=== PATIENT | female | born 1985 | race Hispanic/Latino ===

== ENCOUNTER 2021-06-09 13:10 | Outpatient (CLI) | payer OTHER, SELFPAY ==
[2021-06-09 14:15] VITALS: BP 122/74; PULSE 84
[2021-06-09 14:24] LABS: Basophils Percent Auto 0.3 % (0.2-1.2); Eosinophils Absolute Auto 0.2 K/mm3 (0-0.3); Eosinophils Percent Auto 2.9 % (0-4.4); Hemoglobin 11.5 g/dL (12.0-15.0); Immature Granulocyte Absolute 0.05 K/mm3 (0.00-0.031); Immature Granulocyte Percent A 0.7 % (0-0.5); Lymphocytes Absolute Auto 1.57 K/mm3 (0.9-3.2); Lymphocytes Percent Auto 22.4 % (18.3-44.2); Mean Corpuscular HGB Conc 33.8 g/dl (32-36); Mean Corpuscular Hemoglobin 33.2 pg (26-34); Mean Corpuscular Volume 98.3 fl (80-100); Mean Platelet Volume 10.2 fl (7.4-10.4); Monocytes Absolute Auto 0.3 K/mm3 (0.1-0.6); Monocytes Percent Auto 4.3 % (2.6-8.5); Neutrophils Absolute Auto 4.9 K/mm3 (1.3-6.7); Neutrophils Percent Auto 69.4 % (45.5-73.1); Nucleated Red Blood Cells Absolute Auto 0.1 K/mm3 (0.0-0.012); Nucleated Red Blood Cells Perc 0.7 % (0.0-0.2); Platelet Count Result 251 k/mm3 (150-375); Red Blood Count 3.46 M/mm3 (4.2-5.4); Red Cell Distribution Width 13.9 % (11.5-14.5)
[2021-06-09 14:30] VITALS: BP 121/80; PULSE 78
[2021-06-09 14:34] LABS: Alanine Aminotransferase 18 U/L (4-35); Albumin Level 3.2 g/dL (3.5-5.1); Alkaline Phosphatase 255 U/L (38-126); Anion Gap 6 mmol/L (8-16); Aspartate Amino Transferase 41 U/L (14-36); Bilirubin,Total 0.2 mg/dL (0.2-1.3); Blood Urea Nitrogen 11 mg/dL (7-17); Calcium 8.7 mg/dL (8.4-10.2); Carbon Dioxide 18 mmol/L (22-30); Chloride 110 mmol/L (98-107); Estimated Glomerular Filt Rate > 60; Glucose 118 mg/dL (65-110); Sodium 134 mmol/L (137-145); Uric Acid 4.9 mg/dL (2.5-7.5)
[2021-06-09 14:36] LABS: Add Urine Microscopic? YES; Appearance Urine Cloudy (Clear); Bacteria Urine Trace /hpf; Bilirubin Urine Negative (Negative); Blood Urine Negative (Negative); Color Urine Yellow (Yellow); Glucose Urine UA Negative (Negative); Ketones Urine Negative (Negative); Leukocyte Esterase Ur Negative LEU/UL (NEGATIVE); Mucus Urine Rare /lpf; Nitrate Urine Negative (Negative); Protein Urine 2+ mg/dL (Negative); RBC Urine 0-2 /hpf (0-2); Specific Grav Ur 1.019 (1.001-1.035); Squamous Epithelial Cell Urine Many /hpf (Few); Urobilinogen Urine Negative mg/dL (<2.0); WBC Urine 0-3 /hpf (0-3)
[2021-06-09 14:45] VITALS: BP 124/83; PULSE 78
[2021-06-09 15:00] VITALS: BP 121/79; PULSE 82
[2021-06-09 15:53] LABS: Creatinine Urine 60.8 mg/dL; Total Protein Urine Random 75 mg/dL; Ur Ttl Prot Creatinine Ratio 1.23 mg/mg (0-0.20)
[2021-06-09 15:57] VITALS: BP 122/74
[2021-06-09 16:01] VITALS: BP 121/80
== END 2021-06-09 14:30 | disposition home or self-care (01) ==
LOC: ANHOBOP 13:29 → ANHOBPP 13:37
PROVIDERS: Visit Provider Obstetrics & Gynecology
DX: O13.9 Gestational [pregnancy-induced] hypertension without significant proteinuria, unspecified trimester (principal); Z3A.00 Weeks of gestation of pregnancy not specified
CPT/HCPCS: 36415; 59025; 80053; 81001; 82570; 84156; 84550; 85025; 87086; 99199

== ENCOUNTER 2021-06-13 10:23 | Inpatient (IN) | payer OTHER, SELFPAY ==
[2021-06-13] VITALS (162 sets, daily range): BP systolic 89–150; BP diastolic 50–95; PULSE 60–105; RESP 18; TEMP 36.2–36.9; O2SAT 86–100; BMI 44.1
[2021-06-13 11:36] LABS: Basophils Percent Auto 0.4 % (0.2-1.2); Eosinophils Absolute Auto 0.3 K/mm3 (0-0.3); Eosinophils Percent Auto 3.2 % (0-4.4); Hematocrit 35.8 % (37.0-47.0); Hemoglobin 11.9 g/dL (12.0-15.0); Immature Granulocyte Absolute 0.05 K/mm3 (0.00-0.031); Immature Granulocyte Percent A 0.6 % (0-0.5); Lymphocytes Absolute Auto 1.86 K/mm3 (0.9-3.2); Lymphocytes Percent Auto 24.1 % (18.3-44.2); Mean Corpuscular HGB Conc 33.2 g/dl (32-36); Mean Corpuscular Hemoglobin 32.5 pg (26-34); Mean Corpuscular Volume 97.8 fl (80-100); Mean Platelet Volume 10.2 fl (7.4-10.4); Monocytes Absolute Auto 0.4 K/mm3 (0.1-0.6); Monocytes Percent Auto 4.7 % (2.6-8.5); Neutrophils Absolute Auto 5.2 K/mm3 (1.3-6.7); Nucleated Red Blood Cells Perc 0.4 % (0.0-0.2); Platelet Count Result 254 k/mm3 (150-375); Red Blood Count 3.66 M/mm3 (4.2-5.4); Red Cell Distribution Width 14.2 % (11.5-14.5); White Blood Count 7.7 K/mm3 (4.5-10.0)
[2021-06-13] MEDS: OXYTOCIN 30 UNITS/NS 500 ML 30 UNITS/500 ML BAG IV CONT (11:52)
[2021-06-13 11:57] LABS: Alanine Aminotransferase 19 U/L (4-35); Albumin Level 3.4 g/dL (3.5-5.1); Alkaline Phosphatase 284 U/L (38-126); Anion Gap 8 mmol/L (8-16); Aspartate Amino Transferase 36 U/L (14-36); Bilirubin,Total 0.3 mg/dL (0.2-1.3); Blood Urea Nitrogen 10 mg/dL (7-17); Calcium 8.9 mg/dL (8.4-10.2); Carbon Dioxide 18 mmol/L (22-30); Chloride 109 mmol/L (98-107); Estimated Glomerular Filt Rate > 60; Glucose 96 mg/dL (65-110); Potassium 4.2 mmol/L (3.4-5.0); Sodium 135 mmol/L (137-145)
[2021-06-13] MEDS: LACTATED RINGERS 1,000 ML 125 ML IV CONT ×3 (11:57→17:08)
--- NOTE | 2021-06-13 12:09 | LDADM ---
This patient, Mei Chambers, was admitted to Labor/Delivery/Recovery 106 on 06/13/21 at 10:23. Plans for labor, pain management and were discussed with patient. Patient/family oriented to hospital policies and general routines including ID bracelet, bed and alarms, visiting hours, pain management, procedures, bathroom and other care routines, personal items, smoking policy, room service/diet and guest tray routines, security routines, and visiting hours. Patient/Family are encouraged to report perceived risks to care and to ask questions if they do not understand what they are told or what they should do. See OBIX for further documentation.
--- NOTE | 2021-06-13 15:28 | WPDANESEPPF ---
Anes - Initial Pre Proc Eval Procedure: labor epidural Date/Time: 06/13/21 15:28 Surgeon: Brigitte Jacob MD Pre Op Diagnosis: labor pain Pre Op Diagnosis: Induction of Labor Patient Data Age: 35 Gender: F Height: 1.4 m Weight: 86.3 kg Last Vital Signs Temp 36.9 C 06/13/21 13:30 Pulse 71 06/13/21 15:26 BP 125/74 06/13/21 15:26 Pulse Ox 97 06/13/21 15:24 Allergies Allergy/AdvReac Type Severity Reaction Status Date / Time No Known Allergies Allergy Verified 06/13/21 10:49 Home Medications Medication Instructions Recorded Confirmed Type No Home Medications 06/13/21 06/13/21 History Laboratory Tests 06/13/21 06/13/21 06/13/21 11:14 11:14 11:14 WBC 7.7 K/mm3 K/mm3 (4.5-10.0) RBC 3.66 M/mm3 L M/mm3 (4.2-5.4) Hgb 11.9 g/dL L g/dL (12.0-15.0) Hct 35.8 % L % (37.0-47.0) MCV 97.8 fl fl (80-100) MCH 32.5 pg pg (26-34) MCHC 33.2 g/dl g/dl (32-36) RDW 14.2 % % (11.5-14.5) Plt Count 254 k/mm3 k/mm3 (150-375) MPV 10.2 fl fl (7.4-10.4) Immature Gran % (Auto) 0.6 % H % (0-0.5) Neut % (Auto) 67.0 % % (45.5-73.1) Lymph % (Auto) 24.1 % % (18.3-44.2) [place] % (Auto) 4.7 % % (2.6-8.5) Eos % (Auto) 3.2 % % (0-4.4) Baso % (Auto) 0.4 % % (0.2-1.2) Lymph # (Auto) 1.86 K/mm3 K/mm3 (0.9-3.2) [place] # (Auto) 0.4 K/mm3 K/mm3 (0.1-0.6) Eos # (Auto) 0.3 K/mm3 K/mm3 (0-0.3) Baso # (Auto) 0.0 K/mm3 K/mm3 (0.0-0.1) Abs Immat Gran (auto) 0.05 K/mm3 H K/mm3 (0.00-0.031) Absolute Neuts (auto) 5.2 K/mm3 K/mm3 (1.3-6.7) Absolute Nucleated RBC 0.0 K/mm3 K/mm3 (0.0-0.012) Nucleated RBC % 0.4 % H % (0.0-0.2) Sodium Potassium Chloride Carbon Dioxide Anion Gap BUN Creatinine Estim Creat Clear Calc Estimated GFR Glucose Uric Acid 5.0 mg/dL mg/dL (2.5-7.5) Calcium Total Bilirubin AST ALT Alkaline Phosphatase Total Protein Albumin RPR Pending Blood Type Antibody Screen 06/13/21 06/13/21 11:14 11:14 WBC RBC Hgb Hct MCV MCH MCHC RDW Plt Count MPV Immature Gran % (Auto) Neut % (Auto) Lymph % (Auto) [place] % (Auto) Eos % (Auto) Baso % (Auto) Lymph # (Auto) [place] # (Auto) Eos # (Auto) Baso # (Auto) Abs Immat Gran (auto) Absolute Neuts (auto) Absolute Nucleated RBC Nucleated RBC % Sodium 135 mmol/L L mmol/L (137-145) Potassium 4.2 mmol/L mmol/L (3.4-5.0) Chloride 109 mmol/L H mmol/L (98-107) Carbon Dioxide 18 mmol/L L mmol/L (22-30) Anion Gap 8 mmol/L mmol/L (8-16) BUN 10 mg/dL mg/dL (7-17) Creatinine 0.60 mg/dL L mg/dL (0.7-1.0) Estim Creat Clear Calc Not Reportable Estimated GFR > 60 (59 - ) Glucose 96 mg/dL mg/dL (65-110) Uric Acid Calcium 8.9 mg/dL mg/dL (8.4-10.2) Total Bilirubin 0.3 mg/dL mg/dL (0.2-1.3) AST 36 U/L U/L (14-36) ALT 19 U/L U/L (4-35) Alkaline Phosphatase 284 U/L H U/L (38-126) Total Protein 7.0 g/dL g/dL (6.3-8.2) Albumin 3.4 g/dL L g/dL (3.5-5.1) RPR Blood Type O Positive Antibody Screen Negative Patient hx anesthesia problems: none Family hx anesthesia problems: none Results Review: All pre-operative results and documents have been reviewed as part of the pre-op
--- NOTE | 2021-06-13 15:59 | WPDOBADMIT ---
Obstetrics - Admit Note Admission Note: 35 y/o here for induction d/t GHTN. Cervix 4-5/70/-2 AROM small amount of blood tinged fluid. Anticipate record reviewed. No pertinent additions to the history and/or any subsequent changes in the physical findings that are not consistent with the expected course of the were found. Additions to the history and/or subsequent changes in the physical findings follow. None.
--- NOTE | 2021-06-13 19:55 | PM.OBPRVD ---
OB - Delivery Note Procedure Delivery date: 06/13/21 events: Induced HTN Intrapartal events: None Induction method: none Delivery monitor: external FHT and external uterine Route of delivery: Quantitative Blood Loss (ml): 46 Anesthesia type: Epidural Narrative: Mother and baby in stable condition. Cord gasses collected and handed off to staff. Baby Date of : 06/13/21 Time of : 19:37 Weeks of gestation at delivery: 38 gender: Female presentation: vertex position: Left Occiput Anterior
[2021-06-13] MEDS: OXYTOCIN 30 UNITS/NS 500 ML 30 UNITS/500 ML BAG 125 UNITS IV CONT (20:21)
[2021-06-13] MEDS: WITCH HAZEL 40 PADS 1 PAD TOPICAL (21:55)
[2021-06-13] MEDS: IBUPROFEN 600 MG TABLET PO (21:55)
[2021-06-13] MEDS: BENZOCAINE 20% AER SPR (*SP) 56 GM CAN 1 SPRAY TOPICAL (21:55)
--- NOTE | 2021-06-13 23:38 | OBPPTRN ---
Patient transferred to post room # 288 via wheelchair. Support person present. Oriented to unit, room, information board, rooming in, and security measures. Patient verbalizes understanding.
[2021-06-14 04:05] VITALS: BP 125/77; PULSE 71; RESP 16; TEMP 36.7; O2SAT 98
[2021-06-14 05:47] LABS: Hematocrit 32.4 % (37.0-47.0); Hemoglobin 10.6 g/dL (12.0-15.0)
--- NOTE | 2021-06-14 07:18 | WPDANLDPN2 ---
Anes-Prog Note L&D Date/Time: 06/14/21 07:18 Comfortable throughout: labor and delivery Neuraxial method: epidural Epidural/Spinal procedure site: clean & non-tender Neuro status: Neuro function grossly intact. Cardiovascular status: normal Respiratory status: normal Airway patency: baseline Mental status: baseline Post-Op hydration status: normal Vital Signs: Last Vital Signs Temp 36.7 C 06/14/21 04:05 Pulse 71 06/14/21 04:05 Resp 16 06/14/21 04:05 BP 125/77 06/14/21 04:05 Pulse Ox 98 06/14/21 04:05 Pain score (VAS): 08/29 I/O: Intake & Output 06/13/21 06/13/21 06/14/21 15:59 23:59 07:59 Intake Total 1000 1000 Output Total 100 120 Balance 900 880 Post-procedural complaints: none Patient feedback: Patient satisfied with anesthetic care.
--- NOTE | 2021-06-14 07:48 | PM.OBPNVD ---
OB - PN: Subj Subjective Date/time seen: 06/14/21 07:48 Patient comments: no complaints baby status: doing well OB - PN: Obj Data Labs CBC & Chem 7: 06/14/21 04:16 06/13/21 11:14 Labs: Laboratory Results - last 24 hr 06/13/21 06/13/21 06/13/21 11:14 11:14 11:14 WBC 7.7 RBC 3.66 L Hgb 11.9 L Hct 35.8 L MCV 97.8 MCH 32.5 MCHC 33.2 RDW 14.2 Plt Count 254 MPV 10.2 Immature Gran % (Auto) 0.6 H Neut % (Auto) 67.0 Lymph % (Auto) 24.1 [place] % (Auto) 4.7 Eos % (Auto) 3.2 Baso % (Auto) 0.4 Lymph # (Auto) 1.86 [place] # (Auto) 0.4 Eos # (Auto) 0.3 Baso # (Auto) 0.0 Abs Immat Gran (auto) 0.05 H Absolute Neuts (auto) 5.2 Absolute Nucleated RBC 0.0 Nucleated RBC % 0.4 H Sodium Potassium Chloride Carbon Dioxide Anion Gap BUN Creatinine Estim Creat Clear Calc Estimated GFR Glucose Uric Acid 5.0 Calcium Total Bilirubin AST ALT Alkaline Phosphatase Total Protein Albumin Blood Type O Positive Antibody Screen Negative 06/13/21 06/14/21 11:14 04:16 WBC RBC Hgb 10.6 L Hct 32.4 L MCV MCH MCHC RDW Plt Count MPV Immature Gran % (Auto) Neut % (Auto) Lymph % (Auto) [place] % (Auto) Eos % (Auto) Baso % (Auto) Lymph # (Auto) [place] # (Auto) Eos # (Auto) Baso # (Auto) Abs Immat Gran (auto) Absolute Neuts (auto) Absolute Nucleated RBC Nucleated RBC % Sodium 135 L Potassium 4.2 Chloride 109 H Carbon Dioxide 18 L Anion Gap 8 BUN 10 Creatinine 0.60 L Estim Creat Clear Calc Not Reportable Estimated GFR > 60 Glucose 96 Uric Acid Calcium 8.9 Total Bilirubin 0.3 AST 36 ALT 19 Alkaline Phosphatase 284 H Total Protein 7.0 Albumin 3.4 L Blood Type Antibody Screen OB - PN A/P Plan day: 1 Plan: routine care Time Spent With Patient Time: Total time spent is greater than 50% in coordination of care (as documented) at patient's floor/unit and/or counseling patient: Time with patient: less than 15 minutes Review of Systems Review of Systems: All systems reviewed & are unremarkable except as noted in HPI and below Exam Narrative: Fundus firm and vaginal flow controlled. No lower ext redness, warmth, or edema. Negative homans. Const: General: comfortable Chest: Breast/axilla inspection: normal inspection of the breasts Resp: Effort & Inspection: normal respiratory effort Cardio: Rate: regular rate GI: GI Palp: Yes Soft to palpation Psych: Appearance: grossly normal Affect: normal affect Attitude: cooperative Thought content: Yes Normal thought content present Judgement: Good judgement present (Psych)
[2021-06-14 10:52] LABS: Rapid Plasma Reagin Non-Reactive (NonReactive)
[2021-06-14 11:48] VITALS: BP 129/84; PULSE 74; RESP 16; TEMP 36.6; O2SAT 99
[2021-06-14] MEDS: IBUPROFEN 600 MG TABLET PO ×2 (11:48→19:45)
[2021-06-14 16:00] VITALS: BP 129/82; PULSE 72; RESP 16; TEMP 36.7; O2SAT 97
[2021-06-14 19:45] VITALS: BP 126/78; PULSE 77; RESP 16; TEMP 36.9; O2SAT 100
[2021-06-15 00:10] VITALS: BP 122/74; PULSE 74
--- NOTE | 2021-06-15 00:30 | PC.NURSE ---
Patient viewed the discharge video Mother & Baby Care, The First Two Weeks . Patient was given the opportunity and encouraged to ask questions. Patient verbalized understanding of information shared and has been given the mother/baby guide for home reference.
[2021-06-15 04:00] VITALS: BP 140/82; PULSE 67
[2021-06-15] MEDS: IBUPROFEN 600 MG TABLET PO (04:05)
[2021-06-15] MEDS: TETANUS,DIPHTHERIA,AC PERTUSSIS ADULT (0.5 ML) BOOSTRIX IM (04:09)
--- NOTE | 2021-06-15 07:39 | PM.OBPNVD ---
OB - PN: Subj Subjective Date/time seen: 06/15/21 07:39 Patient comments: no complaints baby status: doing well OB - PN: Obj Data Labs CBC & Chem 7: 06/14/21 04:16 06/13/21 11:14 Labs: Laboratory Results - last 24 hr 06/13/21 11:14 RPR Non-reactive OB - PN A/P Plan day: 2 Plan: routine care and discharge home Time Spent With Patient Time: Total time spent is greater than 50% in coordination of care (as documented) at patient's floor/unit and/or counseling patient: Review of Systems Review of Systems: All systems reviewed & are unremarkable except as noted in HPI and below Exam Const: General: cooperative, healthy appearing and comfortable
--- NOTE | 2021-06-15 07:40 | P.DS_ITS ---
DS: Admitting Diagnosis Discharge Date 06/15/21 Admitting Diagnosis Labor OB - DS: Summary OB Procedures : None OB Procedures Intrapartum: Spontaneous Vag Delivery OB Procedures: : None Time Spent with Patient Time attestation: Total time spent providing and/or coordinating discharge services: DS: Data Data Completed and Pending Pending studies at discharge: Pending at discharge 06/13/21 23:26 Surgical [PTH] Routine Labs on day of discharge: Labs from last 24 hours 06/13/21 11:14 RPR Non-reactive Discharge Plan Discharge Attending physician on discharge: Brigitte Jacob Discharging Clinician: Chelsea Sandoval Patient Disposition: Home, Self-Care Activity: pelvic rest Diet: regular Patient Instructions: Antibiotic Form Stand Alone Forms: General Discharge Information Follow-up/Referrals: Cinthia Rosa CNM [Certified Nurse Financial Reporting Consultant] - 4 Weeks Discharge Medications: New ibuprofen 600 mg Tablet 600 mg PO Q6H PRN (Reason: Cramping) Qty: 30 RF: 0 No Action No Home Medications RF: 0 Date of admission: 06/13/21 10:23 Primary Care Provider: PHYSICIAN,WOODWORKING MACHINE OPERATOR Admitting Provider: Brigitte Jacob Attending physician on admission: Brigitte Jacob Condition: Stable
[2021-06-15 08:02] VITALS: BP 151/86; PULSE 67; RESP 17; TEMP 37.1
--- NOTE | 2021-06-15 11:11 | PC.NURSE ---
Pt states she uses a different [facility] pharmacy in [place]. RN changed patient's [facility] pharmacy [facility]. [facility]. Prescription successfully transferred per pharmacy staff.
[2021-06-17 10:57] VITALS: BP 143/85; PULSE 74; RESP 20; TEMP 36.9; O2SAT 99
== END 2021-06-15 11:11 | disposition home or self-care (01) | DRG 560 ==
LOC: ANHLDR 10:37 → ANHOB2 06-14
PROVIDERS: Advanced Practice Midwife; Admitting Provider Obstetrics & Gynecology; Visit Provider Obstetrics & Gynecology
DX: O13.4 Gestational [pregnancy-induced] hypertension without significant proteinuria, complicating childbirth (principal); Z3A.38 38 weeks gestation of pregnancy; Z37.0 Single live birth
CPT/HCPCS: 36415; 80053; 84550; 85014; 85018; 85025; 86592; 86850; 86900; 86901; 88307; 90715; A9270; J2590; J2795; J7120

== ENCOUNTER 2021-08-16 00:17 | Day surgery (SDC) | payer OTHER, SELFPAY ==
--- NOTE | 2021-08-08 10:23 | PC.NURSE ---
Report to the Outpatient Waiting Room, entrance under the green pavilion located off [facility], at time _1100 on date _08/16/21 . OR Time: ___1300 . - You and your visitor will be asked a series of questions to screen for COVID 19 for your protection. - A mask is required within the hospital. - Only one visitor is allowed at this time. Patient visitors will be guided where to wait when not with patient. Preoperative COVID Testing Requirements: No COVID Test needed if: (proof is required; if not received patient will have Rapid Test prior to entry) - Patient has received COVID Vaccine at least 14 days prior to procedure date or - Patient has positive COVID test result within last 90 days of surgery date. COVID Test needed if above criteria is not met If not COVID vaccinated a COVID test must be conducted within 72 hours of surgery and patient is asked to isolate self from time of testing until procedure. You will go to the [facility] for your COVID testing. The [facility] is located at the corner of [address] [facility]. You will only be called if COVID results are positive and your surgeon may reschedule your elective surgery date. Patients may have clear liquids (water, carbonated beverages, clear teas, apple juice) until 3 hours prior to surgery with a maximum of 20 ounces. - No food from midnight until time of surgery - Infants may have breast milk until 4 hours before surgery, infant formula 6 hours prior to surgery. - Children will be allowed to drink immediately following surgery. If applicable, please bring a bottle or sippy cup to assist with drinking. Juice, water, soda, and popsicles are readily available. For infants on formula, please bring formula the day of surgery. Pacifiers are allowed. Take the following medications with a SIP of water the morning of surgery: ___NONE Medications to discontinue per physician ___NONE Date to take last dose Please no make-up, nail lao, hairspray, perfume, deodorant, or body powder the day of surgery. No jewelry (including any body piercings) or valuables the day of surgery, leave them at home. Please take a shower or bath the night before, or the morning of, surgery with an antibacterial soap. Wear comfortable, loose fitting clothing. Children are encouraged to wear pajamas. - Jewelry must be removed prior to entering the operating room. Rings and piercings that are not removed may be cut off. - The hospital will not accept responsibility for valuables. - Please leave all valuables, including medications, at home the day of surgery. If you are going home after surgery, a licensed [facility] driver must drive you home. - NO public transportation without another adult. - We recommend that an adult stay with you for 24 hours following discharge. - We also recommend that you do not drive, make important decision, drink alcoholic beverages, or take any drugs that were not prescribed by your health care provider for at least 24 hours after your discharge time. For Pediatric surgeries, we recommend two adults accompany the child home (only one inside the building at this time). Follow any additional instructions given to you from your surgeon. BANNER ANIMAL SHELTER MANAGER SABA #[id number] VERBAL instructions given to _PATIENT AND SON and asked if any additional questions and then verbalized understanding. Patient advised to call surgeon office or pre surgery nurse liaison [phone] if any additional questions.
[2021-08-08 10:53] VITALS: BP 124/84; PULSE 72; RESP 16; TEMP 36.7; O2SAT 98; BMI 37.8
[2021-08-16] VITALS (9 sets, daily range): BP systolic 103–129; BP diastolic 63–85; PULSE 66–95; RESP 15–20; TEMP 36.2–36.3; O2SAT 97–100
--- NOTE | 2021-08-16 11:52 | WPDANESEPPF ---
Anes - Initial Pre Proc Eval Procedure: Operation Date: 08/16/21 13:00 Proposed Procedures p Bilateral Laparoscopic Salpingectomy - Jaylyn Carpenter MD Date/Time: 08/16/21 11:52 Surgeon: Jaylyn Carpenter MD Pre Op Diagnosis: desires sterilization Patient Data Age: 35 Gender: F Height: 1.47 m Weight: 87.4 kg Last Vital Signs Temp 36.2 C L 08/16/21 11:27 Pulse 80 08/16/21 11:27 Resp 16 08/16/21 11:27 BP 124/77 08/16/21 11:27 Pulse Ox 99 08/16/21 11:27 Allergies Allergy/AdvReac Type Severity Reaction Status Date / Time No Known Allergies Allergy Verified 08/08/21 10:11 Home Medications Medication Instructions Recorded Confirmed Type ibuprofen 600 mg PO Q6H PRN #30 tablet 06/15/21 08/08/21 Rx Patient hx anesthesia problems: none Family hx anesthesia problems: none Results Review: All pre-operative results and documents have been reviewed as part of the pre-operative evaluation. [facility]LY [facility], [facility] Social History Social History Smoking status: Never smoker Second hand tobacco smoke exposure: No Substance use: never Living arrangements: with family Spiritual care concerns: No Anes - Eval Final PreProcedure Day of Procedure 08/16/21 11:52 Patient weight: morbidly obese Heart: regular rate and rhythm Lungs: clear to auscultation and normal air movement Airway: Mallampati scale class II Neurological: alert and oriented Last oral intake: >/= 8 hours ASA classification: III Emergent: no Anesthetic plan: proceed Anesthesia type and monitoring: general ETT and standard monitoring Results Review: All pre-operative results and documents have been reviewed as part of the pre-operative evaluation. Informed Consent: The patient's anesthetic plan and its attendant risks and benefits were discussed with the patient/family/POA. Questions were solicited and answers provided to the satisfaction of the patient/family/POA.
[2021-08-16] MEDS: ACETAMINOPHEN 500 MG TABLET 1000 MG PO (12:00)
[2021-08-16] MEDS: LACTATED RINGERS 1,000 ML 30 ML IV CONT (12:11)
[2021-08-16] MEDS: KETOROLAC 15 MG/ML VIAL (*BKC) IV PUSH (12:11)
--- NOTE | 2021-08-16 12:16 | SUR.PREOP ---
1200 use of [employer] [id number]. used for information to prepare for surgery. dr stephen also talked to pt about anesthesia.
--- NOTE | 2021-08-16 12:54 | PM.IMHP ---
H&P: HPI History of Present Illness Date/Time: 08/16/21 12:54 Chief Complaint: sterilization Narrative: Mei is a 35yo who presents for LSC bilateral salpingectomy for sterilization. She is certain. has been consented in the office with an shift leader. She has no complaints or concerns today except if she can take the pain meds while her 2mo. Review of Systems Review of Systems: All systems reviewed & are unremarkable except as noted in HPI and below PMFSH Social History Social History Smoking status: Never smoker Second hand tobacco smoke exposure: No Substance use: never Living arrangements: with family Spiritual care concerns: No Meds Home Medications and Allergies Home Medications Medication Instructions Recorded Confirmed Type No Home Medications 08/16/21 08/16/21 History Allergies Allergy/AdvReac Type Severity Reaction Status Date / Time No Known Allergies Allergy Verified 08/16/21 12:00 Vital Signs Vital Signs - 24 hr 08/16/21 11:27 Temperature 97.1 F L Pulse Rate 80 Respiratory Rate 16 Blood Pressure 124/77 Pulse Oximetry 99 Exam Const: General: no acute distress Resp: Effort & Inspection: normal respiratory effort Auscultation: clear to auscultation bilaterally Cardio: Rate: regular rate Rhythm: regular rhythm GI: GI Palp: Yes Soft to palpation Extrem: General: normal to inspection Assessment and Plan Assessment and plan (1) Encounter for sterilization: Code(s): Z30.2 - Encounter for sterilization Status: Acute Additional Plan Previously consented will proceed with LSC bilateral salpingectomy questions answered.
--- NOTE | 2021-08-16 12:56 | WPDHPUPDATE1 ---
History and Physical Update Update Date/Time: 08/16/21 12:56 History and Physical has been reviewed, including an updated exam of the patient. There are NO changes in the patient's condition. Risks, benefits, and alternatives have been discussed and questions answered. Patient agrees to proceed with procedure.
[2021-08-16] MEDS: BUPIVACAINE/EPINEPHRINE 0.25% 10 ML VIAL INFILTRATE (13:29)
--- NOTE | 2021-08-16 13:58 | P.OP_ITS ---
Procedure Note - Detailed Date of Procedure 08/16/21 Pre-op Diagnosis desires sterilization Post-op Diagnosis same Procedure Performed Laparoscopic Bilateral Salpingectomy Surgeon Jaylyn Carpenter MD Anesthesia general Indications undesired future fertility Description of Procedure The patient was taken to the OR and placed in dorthal lithotomy in [facility]. She received general anesthesia. A speculum was placed and the cervix grasped with a single tooth tenaculum and an acorn uterine manipulator placed easily. A trevino catheter had previously been placed. She had received preoperative antibiotics. A 5mm subumbilical skin incision was made and using direct visualization, the trocar was inserted intraperitoneally. The abdomen was insufflated and the pelvis inspected with the above findings. Bilateral 5mm incisions were made and trocars were placed under direct visualization. The right tube was grasped and elevated and using the Ligasure device, the tube was sequentially cauterized and ligated and removed through the trocar and sent to pathology. Similarly, on the left, the tube was removed using the Ligasure device. Hemostasis was noted. The upper abdomen was inspected and noted to be normal. The trocars were removed and the Co2 was removed from the abdomen. The skin was closed with 4-0 vicryl and steri strips. The patient tolerated the procedure well and was taken to the recovery room in stable condition. EBL 5cc. Estimated Blood Loss 5 Drains No Packing No Pathology yes Complications No immediate complications Condition stable Disposition same day
== END 2021-08-16 16:13 | disposition home or self-care (01) ==
PROVIDERS: Visit Provider Obstetrics & Gynecology
PROC: (CPT 49320; principal; 2021-08-16 13:00)
DX: Z30.2 Encounter for sterilization (principal); E66.01 Morbid (severe) obesity due to excess calories; Z68.41 Body mass index [BMI] 40.0-44.9, adult
CPT/HCPCS: 58661; 88302; A9270; J1885; J2250; J2405; J2704; J2710; J3010; J7120